=== PATIENT | female | born 1990 | race Caucasian/White ===

== ENCOUNTER 2018-02-14 20:54 | Emergency (ER) | payer OTHER ==
[2018-02-14 21:09] VITALS: BP 123/71; PULSE 102; TEMP 99; BMI 18.9
--- NOTE | 2018-02-14 21:39 | PDOC ---
History of Present Illness - General Chief Complaint: Injury Stated Complaint: ARM WOUND Time Seen by Provider: 02/14/18 21:11 History Source: Patient Exam Limitations: No Limitations - History of Present Illness Initial Comments: 02/14/18 23:09 Best Contact: PCP:Dr. Villatoro Pmhx: N/A Pshx:N/A Allergies:NKDA FH:N/A Social Hx: Cigarettes/ 0 Alcohol/ 0 Drugs/0 LMP:01/21/2018 27-year-old female who is right hand dominant presents to the emergency department complaining of a laceration to the posterior right forearm. Patient states she's been under a great amount of stress and when she self inflict superficial lacerations to herself, which has been her coping skill. Patient states she's been cutting her wrists since she was 13 years ago but adamantly denies suicidal or homicidal. Patient states she recently had a breakup of a live-in boyfriend of 2 years and they have to move out by the end of the month, in 2 days. Patient states she has a strong family/friends support system. Patient states she accidentally cut too deep with the razor this evening when using her non dominant hand. Patient denies extremity numbness or tingling sensation. Bleeding controlled with direct pressure. Tetanus within 5 years. Patient states she will see a therapist in 2 days/Key from [place]. Patient has an appointment with her psychiatrist in one week. Past History - Past Medical History Allergies/Adverse Reactions: Allergies Allergy/AdvReac Type Severity Reaction Status Date / Time No Known Allergies Allergy Verified 02/14/18 20:57 Home Medications: Ambulatory Orders Alprazolam [Xanax] 0.25 mg PO DAILY 02/14/18 COPD: No Psychiatric Problems: Yes (anxiety,depression) - Suicide/Smoking/Psychosocial Hx Smoking History: Current some day smoker Number of Cigarettes Smoked Daily: 2 Information on smoking cessation initiated: No Review of Systems - Review of Systems Able to Perform ROS?: Yes Comments:: 02/14/18 23:13 CONSTITUTIONAL: Absent: fever, chills, diaphoresis, generalized weakness, malaise, loss of appetite HEENT: Absent: rhinorrhea, nasal congestion, throat pain, throat swelling, difficulty swallowing, mouth swelling, ear pain, eye pain, visual Changes CARDIOVASCULAR: Absent: chest pain, loss of consciousness, palpitations, irregular heart rate, peripheral edema RESPIRATORY: Absent: cough, shortness of breath, dyspnea with exertion, orthopnea, wheezing, stridor, hemoptysis GASTROINTESTINAL: Absent: abdominal pain, abdominal distension, nausea, vomiting, diarrhea, constipation, melena, hematochezia GENITOURINARY: Absent: dysuria, frequency, urgency, hesitancy, hematuria, flank pain, genital pain MUSCULOSKELETAL: Absent: myalgia, arthralgia, joint swelling SKIN: Absent: rash, itching, pallor HEMATOLOGIC/IMMUNOLOGIC: Absent: easy bleeding, easy bruising, lymphadenopathy, frequent infections ENDOCRINE: Absent: unexplained weight gain, unexplained weight loss, heat intolerance, cold intolerance NEUROLOGIC: Absent: headache, focal weakness or paresthesias, dizziness, unsteady gait, seizure, mental status changes, bladder or bowel incontinence PSYCHIATRIC: Absent: anxiety, depression, suicidal or homicidal ideation, hallucinations. Is the patient limited Green[place]ic proficient: No *Physical Exam - Vital Signs Last Vital Signs Temp Pulse Resp BP Pulse Ox 99 F 102 H 18 123/71 100 02/14/18 20:57 02/14/18 20:57 02/14/18 20:57 02/14/18 20:57 02/14/18 20:57 - Physical Exam Comments: 02/14/18 23:13 GENERAL: Well developed, well nourished. Awake and alert. No acute distress. HEENT: Normocephalic, atraumatic. PERRLA, EOMI. No conjunctival pallor. Sclera are non- icteric. Moist mucous membranes. Oropharynx is clear. NECK: Supple. Full ROM. No JVD. Carotid pulses 2+ and symmetric, without bruits. No thyromegaly. No lymphadenopathy. CARDIOVASCULAR: Regular rate and rhythm. No murmurs, rubs, or gallops. Distal pulses are 2+ and symmetric. PULMONARY: No evidence of respiratory distress. Lungs clear to auscultation bilaterally. No wheezing, rales or rhonchi. ABDOMINAL: Soft. Non-tender. Non-distended. No rebound or guarding. No organomegaly. Normoactive bowel sounds. MUSCULOSKELETAL Normal range of motion at all joints. No bony deformities or tenderness. No CVA tenderness. EXTREMITIES: No cyanosis. No clubbing. No edema. No calf tenderness. SKIN: Warm and dry. Normal capillary refill. No rashes. No jaundice. NEUROLOGICAL: Alert, awake, appropriate. Cranial nerves 2-12 intact. No deficits to light touch and temperature in face, upper extremities and lower extremities. No motor deficits in the in face, upper extremities and lower extremities. Normoreflexic in the upper and lower extremities. Normal speech. Toes are down- going bilaterally. Gait is normal without ataxia. PSYCHIATRIC: Cooperative. Good eye contact. Appropriate mood and affect. *DC/Admit/Observation/Transfer Diagnosis at time of Disposition: Laceration of arm Qualifiers: Encounter type: initial encounter Laterality: right Qualified Code(s): S41.111A - Laceration without foreign body of right upper arm, initial encounter - Discharge Dispostion Disposition: HOME Condition at time of disposition: Stable Decision to Admit order: No - Referrals Referrals: Delia Villatoro MD [Primary Care Provider] - - Patient Instructions Printed Discharge Instructions: DI for Laceration Repair -- Complex Suture Additional Instructions: Keep the incision clean and dry The Steri-Strips will fall off on its own. The sutures are dissolvable Take tylenol/motrin as needed for pain. Follow up with your physician or the ER in 48 hours for a wound check. Return to the ER if you notice red streaks, increase redness/swelling/severe pain to the incision. - Post Discharge Activity
[2018-02-14] MEDS ORDERED: LIDOCAINE HCL 1%, 10 MG/ML (20ML VIAL) ONE (22:37)
--- NOTE | 2018-02-14 22:42 | PDOC ---
*Physical Exam - Vital Signs Last Vital Signs Temp Pulse Resp BP Pulse Ox 99 F 102 H 18 123/71 100 02/14/18 20:57 02/14/18 20:57 02/14/18 20:57 02/14/18 20:57 02/14/18 20:57 - Physical Exam Comments: 02/14/18 22:37 alert, smiling, conversant nad lac as noted denies SI/HI/AH/VH laughing with her best friend and her friend's mom, who are vouching for her Medical Decision Making - Medical Decision Making 02/14/18 22:38 27y/o F h/o cutting behavior recently referred to psychiatry and therapist by her PCP 2/2 persistent cutting p/w deeper cut today. Pt has no new stressors, adamantly denies SI and states she's never wanted to, or tried, to kill herself. she uses cutting as a mechanism of emotional release. she actually avoided coming to the ED immediately because of concern for having to see a psychiatrist, which she feels is unnecessary. She is smiling in the ED, accompanied by her best friend, reasonable and with normal affect. Again, she denies SI/HI/AH/VH, and her best friend's mom is in the ED confirming the story and willing to bring her home to . The patient does have a lac that will require sutures. 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 Discussed with Dr. Castellanos, who agrees patient can safely be discharged without 2PC for emergent psych evaluation. *DC/Admit/Observation/Transfer Diagnosis at time of Disposition: Laceration of arm Qualifiers: Encounter type: initial encounter Laterality: right Qualified Code(s): S41.111A - Laceration without foreign body of right upper arm, initial encounter - Discharge Dispostion Disposition: HOME Condition at time of disposition: Stable - Referrals Referrals: Delia Villatoro MD [Primary Care Provider] - - Patient Instructions Printed Discharge Instructions: DI for Laceration Repair -- Complex Suture Additional Instructions: Keep the incision clean and dry The Steri-Strips will fall off on its own. The sutures are dissolvable Take tylenol/motrin as needed for pain. Follow up with your physician or the ER in 48 hours for a wound check. Return to the ER if you notice red streaks, increase redness/swelling/severe pain to the incision. - Post Discharge Activity
== END 2018-02-14 23:18 | disposition home or self-care (01) ==
LOC: JER 20:54
PROC: 0JQD0ZZ Repair Right Upper Arm Subcutaneous Tissue and Fascia, Open Approach (ICD-10-PCS; principal; 2018-02-14)
DX: S41.111A Laceration without foreign body of right upper arm, initial encounter (principal); X78.1XXA Intentional self-harm by knife, initial encounter; Y93.89 Activity, other specified; Y92.038 Other place in apartment as the place of occurrence of the external cause; Y99.8 Other external cause status; Z91.5 Personal history of self-harm; Z87.828 Personal history of other (healed) physical injury and trauma; F41.8 Other specified anxiety disorders; F17.210 Nicotine dependence, cigarettes, uncomplicated
CPT/HCPCS: 13121; 99282-25

== ENCOUNTER 2018-02-19 08:49 | Emergency (ER) | payer OTHER ==
[2018-02-19 08:56] VITALS: BP 96/69; PULSE 78; TEMP 98.3; BMI 18.5
--- NOTE | 2018-02-19 09:11 | PDOC ---
Suture Removal/Wound Check HPI - History of Present Illness Chief Complaint: Revisit,Wound Recheck Stated Complaint: SUTURE REMOVAL Time Seen by Provider: 02/19/18 09:03 History Source: Yes: Patient Treated at: [facility] ED - Previous ED Treatment Type of procedure performed on last visit: Yes: Laceration Repair Tetanus Immunization: Yes: Up to Date Past History - Travel Traveled outside of the country in the last 30 days: No Close contact w/someone who was outside of country & ill: No - Past Medical History Allergies/Adverse Reactions: Allergies Allergy/AdvReac Type Severity Reaction Status Date / Time No Known Allergies Allergy Verified 02/19/18 08:53 Home Medications: Ambulatory Orders Alprazolam [Xanax] 0.25 mg PO DAILY 02/14/18 COPD: No DVT: No Psychiatric Problems: Yes (anxiety,depression) - Suicide/Smoking/Psychosocial Hx Smoking History: Never smoked Number of Cigarettes Smoked Daily: 2 Information on smoking cessation initiated: No Hx Alcohol Use: No Drug/Substance Use Hx: No Substance Use Type: None Suture Removal/Wound Check PE - Physical Exam Laceration/Wound Check Symptoms: reports: Improved Location of Laceration/Wound: right: Forearm (Wound closed with a running suture. No evidence of infection or redness.) *Review of Systems - Review of Systems Able to Perform ROS?: Yes Constitutional: No: Chills, Fever, Weakness Integumentary: Yes: Other (Sutures intact). No: Erythema, Rash Neurological: No: Numbness, Paresthesia, Tingling, Weakness All Other Systems: Reviewed and Negative *Physical Exam - Vital Signs Last Vital Signs Temp Pulse Resp BP Pulse Ox 98.3 F 78 18 96/69 100 02/19/18 08:53 02/19/18 08:53 02/19/18 08:53 02/19/18 08:53 02/19/18 08:53 Medical Decision Making - Medical Decision Making 02/19/18 14:53 Pt. is a 27 y/o F who presents to the ED to have her stitches checked. Pt. with one running SQ stitch. Appears well approximated with no signs of infection. Sutures should resolve on their own. Will dc home at this time. Return precautions given. Pt. understands all dc instructions and all questions were answered. *DC/Admit/Observation/Transfer Diagnosis at time of Disposition: Visit for wound check - Discharge Dispostion Disposition: HOME Condition at time of disposition: Stable Decision to Admit order: No - Referrals Referrals: Delia Villatoro MD [Primary Care Provider] - - Patient Instructions Printed Discharge Instructions: DI for Laceration Repair -- Complex Suture Additional Instructions: You had your wound checked today It is healing well. Do not soak the area. The stitches will dissolve on their own Follow up with your PCP as needed Return to the ED if you have any signs of infection including increased redness around the site, fevers, discharge from the area, or if you have any changes in your symptoms. - Post Discharge Activity Forms/Work/School Notes: Back to Work
== END 2018-02-19 09:30 | disposition home or self-care (01) ==
LOC: JERFT 08:49
DX: Z48.817 Encounter for surgical aftercare following surgery on the skin and subcutaneous tissue (principal)
CPT/HCPCS: 99281-25